=== PATIENT | female | born 1980 | race Caucasian/White ===

== ENCOUNTER 2019-02-16 09:05 | Emergency (ER) | payer OTHER ==
[~2019-02-16] VITALS: Ht 162.6 cm; Wt 54.4 kg
[~2019-02-16 09:05] MED LIST: BUPR150ER PO; BUPR150T2 PO; BUSP10 PO; Cleocin HCl300 MG PO; HYDHCL25 PO; KETO10 PO; NAPR550 PO; Peridex480 ML PO; Prednisone20 MG PO; RISP1 PO; Ultram50 MG PO; Veetids 500500 MG PO
[2019-02-16] MEDS ORDERED: Mupirocin22 GM TOP (10:28)
[2019-02-16] MEDS ORDERED: CEPH500 PO (10:28)
== END 2019-02-16 10:40 | disposition home or self-care (01) ==
LOC: ER 09:05
DX: J34.89 Other specified disorders of nose and nasal sinuses (principal); F17.210 Nicotine dependence, cigarettes, uncomplicated
CPT/HCPCS: 99282

== ENCOUNTER 2021-10-22 07:29 | Emergency (ER) | payer OTHER ==
[~2021-10-22] VITALS: Ht 162.6 cm; Wt 56.7 kg
[~2021-10-22 07:29] MED LIST changes: +CEPH500 PO; +Mupirocin22 GM TOP
[2021-10-22] MEDS ORDERED: Amoxicillin875 MG PO (09:52)
[2021-10-22] MEDS ORDERED: CIPHYDOTSU LEFTEAR (09:52)
== END 2021-10-22 10:10 | disposition home or self-care (01) ==
LOC: ER 07:29
DX: H66.92 Otitis media, unspecified, left ear (principal); H60.92 Unspecified otitis externa, left ear; F17.210 Nicotine dependence, cigarettes, uncomplicated
CPT/HCPCS: 99282; A9270

== ENCOUNTER 2023-06-19 07:59 | Emergency (ER) | payer OTHER ==
[~2023-06-19] VITALS: Ht 162.6 cm; Wt 56.7 kg
[~2023-06-19 07:59] MED LIST changes: +Amoxicillin875 MG PO; +CIPHYDOTSU LEFTEAR
[2023-06-19 08:32] VITALS: BP 102/77
[2023-06-19] MEDS ORDERED: PRED20 PO (09:39)
== END 2023-06-19 09:56 | disposition home or self-care (01) ==
LOC: ER 07:59
DX: L23.7 Allergic contact dermatitis due to plants, except food (principal); F17.210 Nicotine dependence, cigarettes, uncomplicated; Z79.52 Long term (current) use of systemic steroids
CPT/HCPCS: 96372; 99283-25; A9270; J2930

== ENCOUNTER 2024-12-16 12:19 | Emergency (ER) | payer OTHER ==
[~2024-12-16] VITALS: Ht 162.6 cm; Wt 56.7 kg
[~2024-12-16 12:19] MED LIST changes: +PRED20 PO
[2024-12-16] MEDS ORDERED: Ondansetron HCl 2 MG / ML 2ML Vial IV ONE (13:00)
[2024-12-16 13:35] LABS: BASOPHILS ABSOLUTE AUTO 0.06 K/mm3 (0.00-0.23); BASOPHILS PERCENT AUTO 1 % (0-2); EOSINOPHILS ABSOLUTE AUTO 0.22 K/mm3 (0.00-0.68); EOSINOPHILS PERCENT AUTO 4 % (0-6); Hematocrit 38.3 % (33.0-51.0); Hemoglobin 12.7 g/dL (11.5-16.0); IMMATURE GRAN ABSOLUTE AUTO 0.01 K/mm3 (0.00-0.10); IMMATURE GRAN PERCENT AUTO 0 % (0-1); LYMPHOCYTES ABSOLUTE AUTO 1.98 K/mm3 (0.84-5.20); LYMPHOCYTES PERCENT AUTO 32 % (21-46); MONOCYTES ABSOLUTE AUTO 0.43 K/mm3 (0.16-1.47); MONOCYTES PERCENT AUTO 7 % (4-13); Mean Corpuscular HGB Conc 33.2 g/dL (31.5-36.5); Mean Corpuscular Volume 98 fL (80-100); NEUTROPHILS ABSOLUTE AUTO 3.57 K/mm3 (1.96-9.15); NEUTROPHILS PERCENT AUTO 57 % (41-73); NRBC ABSOLUTE 0.00 K/mm3 (0.00-0.02); NRBC Auto 0.0 /100 WBC (0.0-0.2); Platelet Count 245 K/mm3 (150-400); RDW Coefficient Variation 14.3 % (11.7-14.2); RDW Standard Deviation 51.6 fL (35.1-46.3)
[2024-12-16 14:18] LABS: Alanine Aminotransfer (ALT/SGP 21.0 U/L (12-78); Albumin, Blood 3.1 g/dL (3.4-5.0); Albumin/Globulin Ratio 0.9 (0.8-1.8); Anion Gap 7.0 mmol/L (3-11); Aspartate Aminotrans (AST/SGOT 22.0 U/L (12-37); Bilirubin, Total 0.3 mg/dL (0.1-1.0); Blood Urea Nitrogen 10.0 mg/dL (8-24); CO2, Blood 26.0 mmol/L (21-32); Calcium, Blood 8.7 mg/dL (8.5-10.1); Chloride, Blood 105.0 mmol/L (98-108); Creatinine, Blood 0.55 mg/dL (0.40-1.00); Globulin, Blood 3.4 g/dL (2.2-4.0); Glucose, Blood 116.0 mg/dL (70-99); Magnesium, Blood 1.8 mg/dL (1.6-2.4); Potassium, Blood 4.4 mmol/L (3.5-5.5); Sodium, Blood 134.0 mmol/L (136-145); Total Protein, Blood 6.5 g/dL (6.4-8.2)
[2024-12-16] MEDS ORDERED: ONDA4ODT MM (14:51)
[2024-12-16] MEDS ORDERED: MECL25 PO (14:51)
[2024-12-16 14:57] VITALS: BP 110/82
== END 2024-12-16 15:18 | disposition home or self-care (01) ==
LOC: ER 12:19
PROVIDERS: Student in an Organized Health Care Education/Training Program
DX: H81.10 Benign paroxysmal vertigo, unspecified ear (principal); F17.210 Nicotine dependence, cigarettes, uncomplicated; Z79.52 Long term (current) use of systemic steroids; Z79.899 Other long term (current) drug therapy
CPT/HCPCS: 80053; 83735; 85025; 96374; 99283-25; A9270; J2405

== ENCOUNTER 2025-03-13 06:55 | Emergency (ER) | payer OTHER ==
[~2025-03-13] VITALS: Ht 162.6 cm; Wt 56.7 kg
[~2025-03-13 06:55] MED LIST changes: +MECL25 PO; +ONDA4ODT MM
[2025-03-13] MEDS ORDERED: Ipratropium/Albuterol SulF 2.5-0.5MG/3 ML Amp INH ONE (07:35)
[2025-03-13] MEDS ORDERED: Amoxicillin500 MG PO (08:23)
[2025-03-13] MEDS ORDERED: Zithromax250 MG PO (08:23)
[2025-03-13] MEDS ORDERED: BENZ100A PO (08:23)
[2025-03-13 09:42] VITALS: BP 97/63
== END 2025-03-13 09:42 | disposition home or self-care (01) ==
LOC: ER 06:55
DX: J18.9 Pneumonia, unspecified organism (principal); F17.210 Nicotine dependence, cigarettes, uncomplicated; Z79.52 Long term (current) use of systemic steroids; Z79.899 Other long term (current) drug therapy
CPT/HCPCS: 71046; 99283-25; A9270